=== PATIENT | female | born 1955 | race Caucasian/White ===

== ENCOUNTER 2016-12-23 09:08 | Emergency (ER) | payer BC, OTHER ==
[2016-12-23 10:28] VITALS: BP 158/65
--- NOTE | 2016-12-23 10:37 | UC ---
Hip/Pelvis Pain - HPI Summary HPI Summary: complaint of lef chest wall pain fell onto her left side-12/14/16 and has had shoulder pain and left chest wall pain since the fall tenderness in left ribcage , pain in left shoulder taking ibuprofen with some relief pain is intermittent with movement pain with coughing no difficulties ambulating, cqn use her left arm but sometimes causing pain in left ribcage heat lessens pain - History Of Current Complaint Chief Complaint: UCUpperExtremity Stated Complaint: LEFT SHOULDER,RIB PAIN FROM FALL 12/14 Time Seen by Provider: 12/23/16 10:31 Hx Obtained From: Patient Onset/Duration: Sudden Onset, Lasting Days, Still Present Character Of Pain: Aching Aggravating Factor(s): Movement Alleviating Factor(s): Nothing - Allergies/Home Medications Allergies/Adverse Reactions: Allergies Allergy/AdvReac Type Severity Reaction Status Date / Time Penicillins Allergy Hives Verified 12/23/16 10:28 Home Medications: Home Medications Ibuprofen TAB* [Advil TAB*] 600 mg PO Q6H PRN 12/23/16 [History Confirmed ] PMH/Surg Hx/FS Hx/Imm Hx Previously Healthy: Yes - Surgical History Surgical History: None - Family History Known Family History: Negative: Cardiac Disease, Hypertension, Diabetes - Social History Occupation: Unemployed Lives: With Family Alcohol Use: Rare Substance Use Type: None Smoking Status (MU): Former Smoker When Did the Patient Quit Smoking/Using Tobacco: 17 YRS Review of Systems Constitutional: Negative Skin: Negative ENT: Negative Respiratory: Negative Cardiovascular: Negative Gastrointestinal: Negative Genitourinary: Negative Motor: Negative Neurovascular: Negative Musculoskeletal: Other: - lef tshoulder, left rib pain Neurological: Negative Psychological: Negative All Other Systems Reviewed And Are Negative: Yes Physical Exam Triage Information Reviewed: Yes Appearance: No Pain Distress, Well-Nourished Vital Signs: Initial Vital Signs Temp 98.2 F 12/23/16 10:20 Pulse 79 12/23/16 10:20 Resp 16 12/23/16 10:20 BP 158/65 12/23/16 10:20 Pulse Ox 99 12/23/16 10:20 Vital Signs Reviewed: Yes Eyes: Positive: Conjunctiva Clear ENT: Positive: Pharynx normal, TMs normal Neck: Positive: Supple, Nontender Respiratory: Positive: Lungs clear, Normal breath sounds, No respiratory distress, No accessory muscle use, Other: - tenderness in left ribcage under left breast Cardiovascular: Positive: RRR, No Murmur, Pulses Normal Abdomen Description: Positive: Nontender, Soft Bowel Sounds: Positive: Present Musculoskeletal: Positive: No Edema, Other: - left shoulder full ROM, non tender clavicle and scapula and joint of left shoulder, no edema or ecchymosis kyphosis Neurological: Positive: Alert Psychological Exam: Normal Skin: Positive: Other - large ecchymotic area on left thigh Hip Injury Course/Dx - Differential Dx/Diagnosis Differential Diagnosis/HQI/PQRI: Contusion, Sprain, Strain, Other - rib fracture Provider Diagnoses: non displaced anterior 3rd left rib fracture Discharge - Discharge Plan Condition: Stable Disposition: HOME Prescriptions: Cyclobenzaprine TAB* [Flexeril TAB*] 10 mg PO BEDTIME #10 tab Patient Education Materials: Rib Fracture (ED) Referrals: Juanita Mesa MD [Medical Doctor] - Additional Instructions: Start flexeril as directed. Do not drink alcohol or drive while taking flexeril. Please call physical therapy for further evaluation and treatment. Take ibuprofen for fever or pain. Increase fluids and rest. Please review your discharge instructions. If your symptoms do not improve please call your primary care provider or return to urgent care RIB FRACTURE or RIB INJURY What Causes Rib Fractures or Rib Injuries? Rib fractures or injuries usually result from an injury to the chest. They are both treated the same. Unlike other broken bones, rib fractures cannot be casted or splinted to prevent movement. The ribs move each time you breathe in and out and this may hurt. People with rib fractures are likely to take very shallow breaths to keep it from hurting. Shallow breathing does not bring air into the lower part of the lungs, which can lead to pneumonia. Because deep breathing is important to keep from getting pneumonia, rib fractures are usually not taped or treated with belts or binders. These treatments would make it harder to breathe deeply enough to fully expand the lungs. Rib fractures usually heal in 4 to 6 weeks. Symptoms Might Include: Pain to one specific area on the rib cage Swelling Bruising Increased pain when taking a deep breath or coughing Treatment Recommendations: Rest. You may participate in limited activities as long as they do not increase your pain. Non-prescription anti-inflammatory medicine like ibuprofen (Motrin, Advil) or naproxen (Aleve) may help with both the pain and the swelling to your injury. You should not take these medicines if you have a history of bleeding in your stomach. Take pain medicine only as directed. Do not drink alcohol, drive, operate machinery, or participate in activities that require you to be very alert if you are taking narcotic pain medicines. Several times each hour take some deep breaths to fully expand your lungs and then cough to clear your chest. Hold a pillow against your chest while deep breathing and coughing to make it hurt less. Call Your Doctor or Return Here IF: Your pain is getting worse instead of better. You start to have a cough that wont go away. You bring up dark yellow, green, reddish or berrios mucous (phlegm) when you cough. You start to have a fever or chills. You start to have pain in other parts of your chest, arms, back, neck or jaw. You are unable to drink fluids or take medicine because of vomiting, or you vomit several times. You have trouble breathing or become short of breath. You cough up blood. You start to have any other new symptoms that worry you.
--- NOTE | 2016-12-23 11:00 | RAD ---
HISTORY: Trauma, left anterior rib pain COMPARISONS: None VIEWS: 3, Frontal view of the chest with frontal and oblique views of the left hemithorax FINDINGS: There is a nondisplaced fracture of the anterior left third rib. There is no appreciable pneumothorax. There is minimal linear atelectasis of the right lung base.. IMPRESSION: NONDISPLACED RIB FRACTURE OF THE ANTERIOR THIRD RIB ON THE LEFT WITHOUT APPRECIABLE PNEUMOTHORAX
== END 2016-12-23 11:15 | disposition home or self-care (01) ==
LOC: UCCORT 09:08
DX: S22.32XA Fracture of one rib, left side, initial encounter for closed fracture (principal); W19.XXXA Unspecified fall, initial encounter; Y93.9 Activity, unspecified; Y92.9 Unspecified place or not applicable; Z88.0 Allergy status to penicillin; Z87.891 Personal history of nicotine dependence
CPT/HCPCS: 99202; G0463